=== PATIENT | female | born 1975 | race Hispanic/Latino ===

== ENCOUNTER 2020-11-09 10:39 | Inpatient (IN) | payer OTHER, SELFPAY ==
[~2020-11-09] VITALS: Ht 160 cm; Wt 97.5 kg
[2020-11-09] VITALS (7 sets, daily range): BP systolic 134–158; BP diastolic 84–105
[2020-11-09 11:27] LABS: BASOPHILS % (AUTO) 0.1 % (0.0-5.0); HEMATOCRIT 48.3 % (36-48); LYMPHOCYTES % (AUTO) 5.8 % (21.0-51.0); MEAN CORPUSCULAR HEMOGLOBIN 30.1 pg (27.0-33.0); MEAN CORPUSCULAR HGB CONC 33.5 g/dL (32.0-36.0); MEAN CORPUSCULAR VOLUME 89.6 fL (79-99); NEUTROPHILS % (AUTO) 89.9 % (40.0-77.0); PLATELET COUNT (AUTO) 202 K/uL (130-400); RED BLOOD CELL COUNT(AUTO) 5.39 MIL/uL (4.00-5.50); RED CELL DISTRIBUTION WIDTH 13.2 % (11.0-15.5); WHITE BLOOD COUNT (AUTO) 8.3 K/uL (4.8-10.8)
[2020-11-09] MEDS ORDERED: DEXAMETHASONE SOD PHOSPHATE 4 MG/ML 1ML VIAL IVP ONE (11:30)
[2020-11-09] MEDS ORDERED: CEFTRIAXONE 1G VIAL 1 GM in 0.9%NACL 100ML 100 ML IV ONE (11:30)
[2020-11-09] MEDS ORDERED: CEFTRIAXONE 1G VIAL IVP SCH (11:30)
[2020-11-09] MEDS ORDERED: LACTATED RINGERS 1000ML 1,000 ML IV ONE (11:30)
[2020-11-09] MEDS ORDERED: AZITHROMYCIN 250 MG TABLET PO ONE (11:30)
[2020-11-09 11:43] LABS: ALBUMIN 3.2 g/dL (3.5-5.0); BILIRUBIN,TOTAL 0.5 mg/dL (0.2-1.0); CREATININE 1.5 mg/dL (0.5-1.5); CRP QUANTITATIVE 147.4 mg/L (0.00-9.0); POTASSIUM 4.6 mmol/L (3.5-5.1); TOTAL PROTEIN, SERUM 8.4 g/dL (6.0-8.3)
[2020-11-09 11:46] LABS: ABG BASE EXCESS -3.5 mmol/L (-2.0-3.0); ABG HCO3 21.1 mmol/L (21.0-28.0); ABG OXYGEN SATURATION 89.2 % (95.0-99.0); ABG PCO2 37 mmHg (32-45)
[2020-11-09] MEDS ORDERED: OSELTAMIVIR PHOSPHATE 75 MG CAP PO SCH (12:00)
[2020-11-09] MEDS ORDERED: INSULIN HUMULIN R 100 UNIT/ML 3ML ONE (14:08)
[2020-11-09] MEDS ORDERED: PHARMACY COMMUNICATION MISC SCH (14:30)
[2020-11-09] MEDS ORDERED: INSULIN GLARGINE 100 UNITS/ML 10 ML VIAL SQ ONE (15:00)
[2020-11-09 15:20] LABS: HEMOGLOBIN A1C 12.1 % (4.0-6.0)
[2020-11-09] MEDS: OSELTAMIVIR PHOSPHATE 75 MG CAP PO SCH (15:46)
[2020-11-09] MEDS ORDERED: COMPOUND IV REFRIGERATED 1 EACH IVSOLN MISC PRN (16:00)
[2020-11-09] MEDS ORDERED: REMDESIVIR (EUA) 520 200 MG in 0.9% NACL 250ML 250 ML IV ONE (16:00)
[2020-11-09 16:23] LABS: APPEARANCE,URINE Clear (CLEAR); BILIRUBIN,URINE Negative (NEGATIVE); COLOR,URINE Yellow (YELLOW); GLUCOSE, URINE (UA) >=1000 mg/dL (NEGATIVE); KETONES,URINE 40 mg/dL (NEGATIVE); LEUKOCYTE ESTERASE ,URINE Negative (NEGATIVE); NITRATE,URINE Negative (NEGATIVE); OCCULT BLOOD,URINE Large (NEGATIVE); PH,URINE 5.5 (5.0-8.0); PROTEIN,URINE POS 2+ mg/dL (NEGATIVE); UROBILINOGEN,URINE 0.2 mg/dL (0.2-1.0)
[2020-11-09 16:25] LABS: HCG,QUAL RESULT NEGATIVE (NEGATIVE)
[2020-11-09 16:38] LABS: BACTERIA,URINE Few /HPF (None Seen); MUCUS,URINE Moderate LPF (None Seen); SQUAMOUS EPITHELIAL CELL,UR Moderate /HPF (0-2)
[2020-11-09] MEDS ORDERED: INSULIN HUMULIN R 100 UNIT/ML 3ML SQ SCH (18:00)
[2020-11-09] MEDS ORDERED: INSULIN HUMULIN R 100 UNIT/ML 3ML SQ ONE ×2 (18:30→21:30)
[2020-11-09 19:03] LABS: CREATININE 1.3 mg/dL (0.5-1.5); POTASSIUM 4.8 mmol/L (3.5-5.1)
[2020-11-09] MEDS: AZITHROMYCIN 250 MG TABLET PO SCH (21:24)
[2020-11-09] MEDS: ENOXAPARIN SODIUM 60 MG/0.6 ML SQ SCH (21:25)
[2020-11-09] MEDS: INSULIN HUMULIN R 100 UNIT/ML 3ML SQ SCH (21:25)
[2020-11-10] VITALS (28 sets, daily range): BP systolic 128–172; BP diastolic 76–99
[2020-11-10 06:04] LABS: BASOPHILS % (AUTO) 0.1 % (0.0-5.0); EOSINOPHILS % (AUTO) 1.5 % (0.0-8.0); HEMATOCRIT 44.2 % (36-48); LYMPHOCYTES % (AUTO) 9.1 % (21.0-51.0); MEAN CORPUSCULAR HEMOGLOBIN 30.1 pg (27.0-33.0); MEAN CORPUSCULAR HGB CONC 33.7 g/dL (32.0-36.0); MEAN CORPUSCULAR VOLUME 89.3 fL (79-99); MONOCYTES % (AUTO) 4.9 % (3.0-13.0); PLATELET COUNT (AUTO) 194 K/uL (130-400); RED BLOOD CELL COUNT(AUTO) 4.95 MIL/uL (4.00-5.50); RED CELL DISTRIBUTION WIDTH 13.6 % (11.0-15.5); WHITE BLOOD COUNT (AUTO) 7.3 K/uL (4.8-10.8)
[2020-11-10 06:26] LABS: ALBUMIN 2.8 g/dL (3.5-5.0); BILIRUBIN,TOTAL 0.5 mg/dL (0.2-1.0); CREATININE 1.2 mg/dL (0.5-1.5); POTASSIUM 4.6 mmol/L (3.5-5.1); TOTAL PROTEIN, SERUM 7.6 g/dL (6.0-8.3)
[2020-11-10] MEDS: INSULIN HUMULIN R 100 UNIT/ML 3ML SQ SCH ×7 (06:30→20:32)
[2020-11-10] MEDS ORDERED: INSULIN HUMULIN R 100 UNIT/ML 3ML SQ SCH (07:30)
[2020-11-10] MEDS ORDERED: GUAIFENESIN SUGAR-FREE 100 MG/5 ML UDCUP ONE (07:56)
[2020-11-10] MEDS ORDERED: BENZONATATE 100 MG CAPSULE PO ONE (07:57)
[2020-11-10] MEDS: CEFTRIAXONE 1G VIAL IVP SCH (08:01)
[2020-11-10] MEDS: ENOXAPARIN SODIUM 60 MG/0.6 ML SQ SCH ×2 (08:02→20:33)
[2020-11-10] MEDS ORDERED: INSULIN GLARGINE 100 UNITS/ML 10 ML VIAL SQ SCH (09:00)
[2020-11-10] MEDS ORDERED: DEXAMETHASONE SOD PHOSPHATE 4 MG/ML 1ML VIAL IVP SCH (10:30)
[2020-11-10] MEDS ORDERED: PHARMACY COMMUNICATION MISC SCH (10:30)
[2020-11-10] MEDS: REMDESIVIR LABS MISC SCH (14:00)
[2020-11-10] MEDS: GUAIFENESIN SUGAR-FREE 100 MG/5 ML UDCUP PO PRN ×2 (14:11→20:33)
[2020-11-10] MEDS ORDERED: ACETAMINOPHEN 325 MG TAB ONE (16:34)
[2020-11-10] MEDS: OSELTAMIVIR PHOSPHATE 75 MG CAP PO SCH (16:46)
[2020-11-10] MEDS: REMDESIVIR (EUA) 520 100 MG in 0.9% NACL 250ML 250 ML IV SCH (16:47)
[2020-11-10] MEDS ORDERED: ACETAMINOPHEN 325 MG TAB PO PRN ×2 (17:00)
[2020-11-10] MEDS: AZITHROMYCIN 250 MG TABLET PO SCH (20:30)
[2020-11-10] MEDS ORDERED: GLIM2TAB30 PO (23:26)
[2020-11-10] MEDS ORDERED: AMLO-257 PO (23:26)
[2020-11-10] MEDS ORDERED: METF-445 PO (23:26)
[2020-11-10] MEDS ORDERED: BISO1TAB99 PO (23:26)
[2020-11-10] MEDS ORDERED: LISI10TA24 PO (23:26)
[2020-11-10] MEDS ORDERED: ALPR-409 PO (23:26)
[2020-11-10] MEDS ORDERED: FLUO20CA30 PO (23:26)
[2020-11-11] VITALS (33 sets, daily range): BP systolic 111–156; BP diastolic 56–93
[2020-11-11 04:56] LABS: LYMPHOCYTES % (AUTO) 9.3 % (21.0-51.0); MEAN CORPUSCULAR HEMOGLOBIN 30.1 pg (27.0-33.0); MEAN CORPUSCULAR HGB CONC 32.9 g/dL (32.0-36.0); MEAN CORPUSCULAR VOLUME 91.6 fL (79-99); MONOCYTES % (AUTO) 7.3 % (3.0-13.0); NEUTROPHILS % (AUTO) 82.9 % (40.0-77.0); PLATELET COUNT (AUTO) 198 K/uL (130-400); RED BLOOD CELL COUNT(AUTO) 4.91 MIL/uL (4.00-5.50); RED CELL DISTRIBUTION WIDTH 13.5 % (11.0-15.5); WHITE BLOOD COUNT (AUTO) 6.6 K/uL (4.8-10.8)
[2020-11-11 05:19] LABS: ALBUMIN 2.6 g/dL (3.5-5.0); BILIRUBIN,TOTAL 0.4 mg/dL (0.2-1.0); POTASSIUM 4.4 mmol/L (3.5-5.1); TOTAL PROTEIN, SERUM 7.3 g/dL (6.0-8.3)
[2020-11-11] MEDS: INSULIN HUMULIN R 100 UNIT/ML 3ML SQ SCH ×7 (06:24→20:25)
[2020-11-11] MEDS: REMDESIVIR LABS MISC SCH (06:25)
[2020-11-11] MEDS: BARICITINIB (EUA) 2 MG TABLET PO SCH (08:36)
[2020-11-11] MEDS: ENOXAPARIN SODIUM 60 MG/0.6 ML SQ SCH ×2 (08:36→19:48)
[2020-11-11] MEDS: CEFTRIAXONE 1G VIAL IVP SCH (08:36)
[2020-11-11] MEDS: DEXAMETHASONE SOD PHOSPHATE 4 MG/ML 1ML VIAL IVP SCH (08:36)
[2020-11-11] MEDS: INSULIN GLARGINE 100 UNITS/ML 10 ML VIAL SQ SCH ×2 (08:37→20:24)
[2020-11-11] MEDS: LABETALOL HCL 200 MG TABLET PO SCH ×2 (11:23→21:00)
[2020-11-11] MEDS: BUSPIRONE HCL 5 MG TABLET PO SCH ×2 (15:58→20:14)
[2020-11-11] MEDS: OSELTAMIVIR PHOSPHATE 75 MG CAP PO SCH (15:58)
[2020-11-11] MEDS: REMDESIVIR (EUA) 520 100 MG in 0.9% NACL 250ML 250 ML IV SCH (16:10)
[2020-11-11] MEDS: GUAIFENESIN SUGAR-FREE 100 MG/5 ML UDCUP PO PRN (18:57)
[2020-11-11] MEDS: AZITHROMYCIN 250 MG TABLET PO SCH (19:48)
[2020-11-11] MEDS: ALPRAZOLAM 0.25 MG TABLET PO PRN (19:48)
[2020-11-11] MEDS: AMLODIPINE 5 MG TAB PO SCH (19:51)
[2020-11-11] MEDS: LISINOPRIL 10 MG TABLET PO SCH (19:51)
[2020-11-11] MEDS: GLIMEPIRIDE 2 MG TABLET PO SCH (20:44)
[2020-11-11] MEDS: BISOPROLOL HCTZ PO SCH (21:00)
[2020-11-12] VITALS (24 sets, daily range): BP systolic 100–159; BP diastolic 59–94
[2020-11-12 05:00] LABS: BASOPHILS % (AUTO) 0.2 % (0.0-5.0); HEMATOCRIT 41.1 % (36-48); LYMPHOCYTES % (AUTO) 18.1 % (21.0-51.0); MEAN CORPUSCULAR HEMOGLOBIN 30.2 pg (27.0-33.0); MEAN CORPUSCULAR HGB CONC 33.1 g/dL (32.0-36.0); MEAN CORPUSCULAR VOLUME 91.3 fL (79-99); MONOCYTES % (AUTO) 8.3 % (3.0-13.0); NEUTROPHILS % (AUTO) 72.6 % (40.0-77.0); PLATELET COUNT (AUTO) 229 K/uL (130-400); RED CELL DISTRIBUTION WIDTH 13.4 % (11.0-15.5); WHITE BLOOD COUNT (AUTO) 5.2 K/uL (4.8-10.8)
[2020-11-12 05:30] LABS: ALBUMIN 2.4 g/dL (3.5-5.0); BILIRUBIN,TOTAL 0.3 mg/dL (0.2-1.0); CREATININE 1.1 mg/dL (0.5-1.5); CRP QUANTITATIVE 58.2 mg/L (0.00-9.0); POTASSIUM 3.8 mmol/L (3.5-5.1); TOTAL PROTEIN, SERUM 6.8 g/dL (6.0-8.3)
[2020-11-12] MEDS: INSULIN HUMULIN R 100 UNIT/ML 3ML SQ SCH ×7 (05:50→20:45)
[2020-11-12] MEDS: REMDESIVIR LABS MISC SCH (06:15)
[2020-11-12] MEDS: BISOPROLOL HCTZ PO SCH ×2 (09:00→20:38)
[2020-11-12] MEDS: DEXAMETHASONE SOD PHOSPHATE 4 MG/ML 1ML VIAL IVP SCH (10:10)
[2020-11-12] MEDS: CEFTRIAXONE 1G VIAL IVP SCH (10:11)
[2020-11-12] MEDS: FLUOXETINE HCL 20 MG CAPSULE PO SCH (10:11)
[2020-11-12] MEDS: BUSPIRONE HCL 5 MG TABLET PO SCH ×3 (10:11→20:39)
[2020-11-12] MEDS: BARICITINIB (EUA) 2 MG TABLET PO SCH (10:12)
[2020-11-12] MEDS: GLIMEPIRIDE 2 MG TABLET PO SCH ×2 (10:12→20:40)
[2020-11-12] MEDS: AMLODIPINE 5 MG TAB PO SCH ×2 (10:12→20:39)
[2020-11-12] MEDS: LISINOPRIL 10 MG TABLET PO SCH ×2 (10:13→20:40)
[2020-11-12] MEDS: ENOXAPARIN SODIUM 60 MG/0.6 ML SQ SCH ×2 (10:15→20:42)
[2020-11-12] MEDS: INSULIN GLARGINE 100 UNITS/ML 10 ML VIAL SQ SCH ×2 (10:19→20:43)
[2020-11-12] MEDS: LABETALOL HCL 200 MG TABLET PO SCH ×2 (11:40→21:00)
[2020-11-12] MEDS: GUAIFENESIN SUGAR-FREE 100 MG/5 ML UDCUP PO PRN (12:04)
[2020-11-12] MEDS: REMDESIVIR (EUA) 520 100 MG in 0.9% NACL 250ML 250 ML IV SCH (15:18)
[2020-11-12] MEDS: OSELTAMIVIR PHOSPHATE 75 MG CAP PO SCH (15:21)
[2020-11-12] MEDS: AZITHROMYCIN 250 MG TABLET PO SCH (20:39)
[2020-11-12] MEDS: ALPRAZOLAM 0.25 MG TABLET PO PRN (22:47)
[2020-11-13] VITALS (31 sets, daily range): BP systolic 104–169; BP diastolic 65–113
[2020-11-13 05:05] LABS: BASOPHILS % (AUTO) 0.1 % (0.0-5.0); EOSINOPHILS % (AUTO) 0.3 % (0.0-8.0); MEAN CORPUSCULAR HEMOGLOBIN 29.6 pg (27.0-33.0); MEAN CORPUSCULAR HGB CONC 32.7 g/dL (32.0-36.0); MEAN CORPUSCULAR VOLUME 90.7 fL (79-99); NEUTROPHILS % (AUTO) 77.9 % (40.0-77.0); PLATELET COUNT (AUTO) 270 K/uL (130-400); RED BLOOD CELL COUNT(AUTO) 4.52 MIL/uL (4.00-5.50); RED CELL DISTRIBUTION WIDTH 13.2 % (11.0-15.5); WHITE BLOOD COUNT (AUTO) 7.2 K/uL (4.8-10.8)
[2020-11-13 05:22] LABS: ALBUMIN 2.4 g/dL (3.5-5.0); BILIRUBIN,TOTAL 0.3 mg/dL (0.2-1.0); CREATININE 1.1 mg/dL (0.5-1.5); CRP QUANTITATIVE 38.3 mg/L (0.00-9.0); POTASSIUM 3.3 mmol/L (3.5-5.1); TOTAL PROTEIN, SERUM 6.5 g/dL (6.0-8.3)
[2020-11-13] MEDS: INSULIN HUMULIN R 100 UNIT/ML 3ML SQ SCH ×7 (05:59→20:39)
[2020-11-13] MEDS: REMDESIVIR LABS MISC SCH (06:29)
[2020-11-13] MEDS: GUAIFENESIN SUGAR-FREE 100 MG/5 ML UDCUP PO PRN (08:18)
[2020-11-13] MEDS: DEXAMETHASONE SOD PHOSPHATE 4 MG/ML 1ML VIAL IVP SCH (08:48)
[2020-11-13] MEDS: CEFTRIAXONE 1G VIAL IVP SCH (08:48)
[2020-11-13] MEDS: GLIMEPIRIDE 2 MG TABLET PO SCH ×2 (08:49→20:35)
[2020-11-13] MEDS: BUSPIRONE HCL 5 MG TABLET PO SCH ×3 (08:49→20:36)
[2020-11-13] MEDS: FLUOXETINE HCL 20 MG CAPSULE PO SCH (08:49)
[2020-11-13] MEDS: BARICITINIB (EUA) 2 MG TABLET PO SCH (08:49)
[2020-11-13] MEDS: INSULIN GLARGINE 100 UNITS/ML 10 ML VIAL SQ SCH ×2 (08:51→20:40)
[2020-11-13] MEDS: ENOXAPARIN SODIUM 60 MG/0.6 ML SQ SCH ×2 (08:52→20:34)
[2020-11-13] MEDS: BISOPROLOL HCTZ PO SCH (08:56)
[2020-11-13] MEDS: LABETALOL HCL 200 MG TABLET PO SCH ×3 (09:00→20:35)
[2020-11-13] MEDS: AMLODIPINE 5 MG TAB PO SCH ×3 (09:00→20:35)
[2020-11-13] MEDS: LISINOPRIL 10 MG TABLET PO SCH ×2 (09:02→20:36)
[2020-11-13] MEDS ORDERED: POTASSIUM CHLORIDE 10% ELIXIR 20 MEQ/15 ML UDCUP PO PRN (14:00)
[2020-11-13] MEDS ORDERED: LIDOCAINE HCL-MPF 1% 2ML VIAL IV PRN (14:00)
[2020-11-13] MEDS ORDERED: POTASSIUM CHLORIDE 20MEQ/100ML 100 ML IV PRN (14:00)
[2020-11-13] MEDS: KCL 20 MEQ ERTAB PO PRN ×2 (14:46→18:49)
[2020-11-13] MEDS: REMDESIVIR (EUA) 520 100 MG in 0.9% NACL 250ML 250 ML IV SCH (15:05)
[2020-11-13] MEDS: OSELTAMIVIR PHOSPHATE 75 MG CAP PO SCH (15:05)
[2020-11-13] MEDS: ALPRAZOLAM 0.25 MG TABLET PO PRN (20:35)
[2020-11-13] MEDS: BENZONATATE 100 MG CAPSULE PO PRN (20:36)
[2020-11-13] MEDS: ZOLPIDEM TARTRATE 5 MG TAB PO PRN (21:32)
[2020-11-14] VITALS (23 sets, daily range): BP systolic 98–140; BP diastolic 63–90
[2020-11-14] MEDS: INSULIN HUMULIN R 100 UNIT/ML 3ML SQ SCH ×7 (06:23→20:30)
[2020-11-14 06:32] LABS: BASOPHILS % (AUTO) 0.2 % (0.0-5.0); EOSINOPHILS % (AUTO) 0.9 % (0.0-8.0); HEMATOCRIT 40.8 % (36-48); MEAN CORPUSCULAR HEMOGLOBIN 30.5 pg (27.0-33.0); MEAN CORPUSCULAR HGB CONC 33.3 g/dL (32.0-36.0); MEAN CORPUSCULAR VOLUME 91.5 fL (79-99); MONOCYTES % (AUTO) 2.7 % (3.0-13.0); NEUTROPHILS % (AUTO) 85.4 % (40.0-77.0); PLATELET COUNT (AUTO) 257 K/uL (130-400); RED BLOOD CELL COUNT(AUTO) 4.46 MIL/uL (4.00-5.50); RED CELL DISTRIBUTION WIDTH 13.2 % (11.0-15.5); WHITE BLOOD COUNT (AUTO) 8.6 K/uL (4.8-10.8)
[2020-11-14 06:45] LABS: ALBUMIN 2.4 g/dL (3.5-5.0); BILIRUBIN,TOTAL 0.3 mg/dL (0.2-1.0); CREATININE 0.9 mg/dL (0.5-1.5); POTASSIUM 3.8 mmol/L (3.5-5.1); TOTAL PROTEIN, SERUM 6.4 g/dL (6.0-8.3)
[2020-11-14] MEDS: INSULIN GLARGINE 100 UNITS/ML 10 ML VIAL SQ SCH ×2 (09:00→20:31)
[2020-11-14] MEDS: AMLODIPINE 5 MG TAB PO SCH ×2 (09:01→21:00)
[2020-11-14] MEDS: HYDROCHLOROTHIAZIDE 25 MG TABLET PO SCH (09:01)
[2020-11-14] MEDS: LISINOPRIL 10 MG TABLET PO SCH ×2 (09:01→21:00)
[2020-11-14] MEDS: GLIMEPIRIDE 2 MG TABLET PO SCH ×2 (09:02→20:29)
[2020-11-14] MEDS: FLUOXETINE HCL 20 MG CAPSULE PO SCH (09:02)
[2020-11-14] MEDS: BUSPIRONE HCL 5 MG TABLET PO SCH ×3 (09:04→20:29)
[2020-11-14] MEDS: BARICITINIB (EUA) 2 MG TABLET PO SCH (09:06)
[2020-11-14] MEDS: DEXAMETHASONE SOD PHOSPHATE 4 MG/ML 1ML VIAL IVP SCH (09:06)
[2020-11-14] MEDS: ENOXAPARIN SODIUM 60 MG/0.6 ML SQ SCH ×2 (09:07→20:28)
[2020-11-14] MEDS: CEFTRIAXONE 1G VIAL IVP SCH (09:07)
[2020-11-14] MEDS: LABETALOL HCL 200 MG TABLET PO SCH ×2 (09:38→20:28)
[2020-11-14] MEDS: ALPRAZOLAM 0.25 MG TABLET PO PRN (20:28)
[2020-11-15] VITALS (20 sets, daily range): BP systolic 97–173; BP diastolic 56–105
[2020-11-15] MEDS: INSULIN HUMULIN R 100 UNIT/ML 3ML SQ SCH ×7 (07:04→20:40)
[2020-11-15 07:25] LABS: ALBUMIN 2.4 g/dL (3.5-5.0); BILIRUBIN,TOTAL 0.4 mg/dL (0.2-1.0); CREATININE 1.1 mg/dL (0.5-1.5); POTASSIUM 3.8 mmol/L (3.5-5.1); TOTAL PROTEIN, SERUM 5.8 g/dL (6.0-8.3)
[2020-11-15] MEDS: DEXAMETHASONE SOD PHOSPHATE 4 MG/ML 1ML VIAL IVP SCH ×2 (08:19→20:36)
[2020-11-15] MEDS: ENOXAPARIN SODIUM 60 MG/0.6 ML SQ SCH ×2 (08:19→20:36)
[2020-11-15] MEDS: BUSPIRONE HCL 5 MG TABLET PO SCH ×3 (08:20→20:36)
[2020-11-15] MEDS: AMLODIPINE 5 MG TAB PO SCH ×2 (08:20→20:37)
[2020-11-15] MEDS: LABETALOL HCL 200 MG TABLET PO SCH ×2 (08:20→20:36)
[2020-11-15] MEDS: FLUOXETINE HCL 20 MG CAPSULE PO SCH (08:20)
[2020-11-15] MEDS: FAMOTIDINE 20MG TAB PO SCH ×2 (08:20→20:36)
[2020-11-15] MEDS: LISINOPRIL 10 MG TABLET PO SCH ×2 (08:20→20:37)
[2020-11-15] MEDS: HYDROCHLOROTHIAZIDE 25 MG TABLET PO SCH (08:20)
[2020-11-15] MEDS: BARICITINIB (EUA) 2 MG TABLET PO SCH (08:20)
[2020-11-15] MEDS: GLIMEPIRIDE 2 MG TABLET PO SCH ×2 (09:08→20:37)
[2020-11-15] MEDS: GUAIFENESIN SUGAR-FREE 100 MG/5 ML UDCUP PO PRN (09:24)
[2020-11-15] MEDS: ALPRAZOLAM 0.25 MG TABLET PO PRN (20:37)
[2020-11-15] MEDS: INSULIN GLARGINE 100 UNITS/ML 10 ML VIAL SQ SCH (20:41)
[2020-11-16] VITALS (18 sets, daily range): BP systolic 111–141; BP diastolic 61–103
[2020-11-16 05:40] LABS: BASOPHILS % (AUTO) 0.2 % (0.0-5.0); EOSINOPHILS % (AUTO) 0.5 % (0.0-8.0); HEMATOCRIT 40.7 % (36-48); MEAN CORPUSCULAR HEMOGLOBIN 30.2 pg (27.0-33.0); MEAN CORPUSCULAR HGB CONC 32.9 g/dL (32.0-36.0); MEAN CORPUSCULAR VOLUME 91.7 fL (79-99); MONOCYTES % (AUTO) 3.5 % (3.0-13.0); PLATELET COUNT (AUTO) 322 K/uL (130-400); RED BLOOD CELL COUNT(AUTO) 4.44 MIL/uL (4.00-5.50); RED CELL DISTRIBUTION WIDTH 12.9 % (11.0-15.5); WHITE BLOOD COUNT (AUTO) 12.2 K/uL (4.8-10.8)
[2020-11-16 05:59] LABS: ALBUMIN 2.4 g/dL (3.5-5.0); BILIRUBIN,TOTAL 0.3 mg/dL (0.2-1.0); POTASSIUM 4.6 mmol/L (3.5-5.1); TOTAL PROTEIN, SERUM 6.9 g/dL (6.0-8.3)
[2020-11-16] MEDS: INSULIN HUMULIN R 100 UNIT/ML 3ML SQ SCH ×7 (06:34→21:07)
[2020-11-16] MEDS: AMLODIPINE 5 MG TAB PO SCH ×2 (08:24→21:05)
[2020-11-16] MEDS: FAMOTIDINE 20MG TAB PO SCH ×2 (08:24→21:04)
[2020-11-16] MEDS: DEXAMETHASONE SOD PHOSPHATE 4 MG/ML 1ML VIAL IVP SCH ×2 (08:24→21:04)
[2020-11-16] MEDS: BARICITINIB (EUA) 2 MG TABLET PO SCH (08:24)
[2020-11-16] MEDS: HYDROCHLOROTHIAZIDE 25 MG TABLET PO SCH (08:24)
[2020-11-16] MEDS: FLUOXETINE HCL 20 MG CAPSULE PO SCH (08:24)
[2020-11-16] MEDS: GLIMEPIRIDE 2 MG TABLET PO SCH ×2 (08:25→21:20)
[2020-11-16] MEDS: ENOXAPARIN SODIUM 60 MG/0.6 ML SQ SCH ×2 (08:27→21:05)
[2020-11-16] MEDS: LABETALOL HCL 200 MG TABLET PO SCH ×2 (08:31→21:04)
[2020-11-16] MEDS: LISINOPRIL 10 MG TABLET PO SCH ×2 (08:32→21:05)
[2020-11-16] MEDS: BUSPIRONE HCL 5 MG TABLET PO SCH ×3 (08:32→21:04)
[2020-11-16] MEDS: GUAIFENESIN SUGAR-FREE 100 MG/5 ML UDCUP PO PRN (08:36)
[2020-11-16] MEDS: INSULIN GLARGINE 100 UNITS/ML 10 ML VIAL SQ SCH (21:07)
[2020-11-17 04:03] VITALS: BP 130/70
[2020-11-17] MEDS: INSULIN HUMULIN R 100 UNIT/ML 3ML SQ SCH ×8 (06:05→21:14)
[2020-11-17 07:39] VITALS: BP 115/80
[2020-11-17] MEDS: INSULIN GLARGINE 100 UNITS/ML 10 ML VIAL SQ SCH ×2 (09:17→21:15)
[2020-11-17] MEDS: DEXAMETHASONE SOD PHOSPHATE 4 MG/ML 1ML VIAL IVP SCH ×2 (09:21→21:09)
[2020-11-17] MEDS: LABETALOL HCL 200 MG TABLET PO SCH ×2 (09:22→21:08)
[2020-11-17] MEDS: LISINOPRIL 10 MG TABLET PO SCH ×2 (09:22→21:08)
[2020-11-17] MEDS: BUSPIRONE HCL 5 MG TABLET PO SCH ×3 (09:23→21:09)
[2020-11-17] MEDS: ENOXAPARIN SODIUM 60 MG/0.6 ML SQ SCH ×2 (09:23→21:09)
[2020-11-17] MEDS: BARICITINIB (EUA) 2 MG TABLET PO SCH (09:23)
[2020-11-17] MEDS: HYDROCHLOROTHIAZIDE 25 MG TABLET PO SCH (09:23)
[2020-11-17] MEDS: FAMOTIDINE 20MG TAB PO SCH ×2 (09:23→21:08)
[2020-11-17] MEDS: FLUOXETINE HCL 20 MG CAPSULE PO SCH (09:23)
[2020-11-17] MEDS: GLIMEPIRIDE 2 MG TABLET PO SCH ×2 (09:23→21:09)
[2020-11-17 11:57] VITALS: BP 126/73
[2020-11-17] MEDS: AMLODIPINE 5 MG TAB PO SCH ×2 (12:01→21:09)
[2020-11-17 15:47] VITALS: BP 110/64
[2020-11-17 20:09] VITALS: BP 111/66
[2020-11-17] MEDS: ALPRAZOLAM 0.25 MG TABLET PO PRN (21:20)
[2020-11-17] MEDS: ZOLPIDEM TARTRATE 5 MG TAB PO PRN (21:20)
[2020-11-17 23:44] VITALS: BP 126/66
[2020-11-18 03:47] VITALS: BP 146/72
[2020-11-18] MEDS: INSULIN HUMULIN R 100 UNIT/ML 3ML SQ SCH ×7 (06:11→20:29)
[2020-11-18 08:17] VITALS: BP 120/62
[2020-11-18] MEDS: FAMOTIDINE 20MG TAB PO SCH ×2 (09:52→20:25)
[2020-11-18] MEDS: LISINOPRIL 10 MG TABLET PO SCH ×2 (09:52→20:26)
[2020-11-18] MEDS: HYDROCHLOROTHIAZIDE 25 MG TABLET PO SCH (09:53)
[2020-11-18] MEDS: BARICITINIB (EUA) 2 MG TABLET PO SCH (09:53)
[2020-11-18] MEDS: FLUOXETINE HCL 20 MG CAPSULE PO SCH (09:53)
[2020-11-18] MEDS: BUSPIRONE HCL 5 MG TABLET PO SCH ×3 (09:53→20:24)
[2020-11-18] MEDS: AMLODIPINE 5 MG TAB PO SCH ×2 (09:53→20:24)
[2020-11-18] MEDS: ENOXAPARIN SODIUM 60 MG/0.6 ML SQ SCH ×2 (09:53→20:23)
[2020-11-18] MEDS: GLIMEPIRIDE 2 MG TABLET PO SCH ×2 (09:53→20:23)
[2020-11-18] MEDS: DEXAMETHASONE SOD PHOSPHATE 4 MG/ML 1ML VIAL IVP SCH ×2 (09:56→20:25)
[2020-11-18] MEDS: INSULIN GLARGINE 100 UNITS/ML 10 ML VIAL SQ SCH ×2 (10:12→20:28)
[2020-11-18 11:47] VITALS: BP 137/75
[2020-11-18] MEDS: LABETALOL HCL 200 MG TABLET PO SCH ×2 (12:55→20:24)
[2020-11-18 16:14] VITALS: BP 102/65
[2020-11-18] MEDS: ZOLPIDEM TARTRATE 5 MG TAB PO PRN (20:24)
[2020-11-18 20:42] VITALS: BP 108/71
[2020-11-18 23:55] VITALS: BP 120/77
[2020-11-19 03:57] VITALS: BP 137/75
[2020-11-19 04:34] LABS: BASOPHILS % (AUTO) 0.2 % (0.0-5.0); EOSINOPHILS % (AUTO) 0.2 % (0.0-8.0); HEMATOCRIT 40.5 % (36-48); LYMPHOCYTES % (AUTO) 3.2 % (21.0-51.0); MEAN CORPUSCULAR HEMOGLOBIN 30.2 pg (27.0-33.0); MEAN CORPUSCULAR HGB CONC 33.1 g/dL (32.0-36.0); MEAN CORPUSCULAR VOLUME 91.4 fL (79-99); MONOCYTES % (AUTO) 7.4 % (3.0-13.0); NEUTROPHILS % (AUTO) 85.8 % (40.0-77.0); PLATELET COUNT (AUTO) 345 K/uL (130-400); RED BLOOD CELL COUNT(AUTO) 4.43 MIL/uL (4.00-5.50); RED CELL DISTRIBUTION WIDTH 12.8 % (11.0-15.5)
[2020-11-19 04:50] LABS: ALBUMIN 2.5 g/dL (3.5-5.0); BILIRUBIN,TOTAL 0.3 mg/dL (0.2-1.0); CRP QUANTITATIVE 9.9 mg/L (0.00-9.0); MAGNESIUM 2.1 mg/dL (1.80-2.40); PHOSPHORUS 4.4 mg/dL (2.5-4.9); POTASSIUM 4.3 mmol/L (3.5-5.1); TOTAL PROTEIN, SERUM 6.7 g/dL (6.0-8.3)
[2020-11-19 05:44] LABS: B-TYPE NATRIURETIC PEPTIDE < 5 pg/mL (0-100)
[2020-11-19] MEDS: INSULIN HUMULIN R 100 UNIT/ML 3ML SQ SCH ×7 (07:30→20:37)
[2020-11-19 08:32] VITALS: BP 118/75
[2020-11-19] MEDS: FAMOTIDINE 20MG TAB PO SCH ×2 (09:22→20:34)
[2020-11-19] MEDS: FLUOXETINE HCL 20 MG CAPSULE PO SCH (09:22)
[2020-11-19] MEDS: ENOXAPARIN SODIUM 60 MG/0.6 ML SQ SCH ×2 (09:23→20:35)
[2020-11-19] MEDS: HYDROCHLOROTHIAZIDE 25 MG TABLET PO SCH (09:24)
[2020-11-19] MEDS: LISINOPRIL 10 MG TABLET PO SCH ×2 (09:24→20:34)
[2020-11-19] MEDS: LABETALOL HCL 200 MG TABLET PO SCH ×2 (09:25→20:34)
[2020-11-19] MEDS: GLIMEPIRIDE 2 MG TABLET PO SCH ×2 (09:28→20:38)
[2020-11-19] MEDS: BARICITINIB (EUA) 2 MG TABLET PO SCH (09:29)
[2020-11-19] MEDS: DEXAMETHASONE SOD PHOSPHATE 4 MG/ML 1ML VIAL IVP SCH ×2 (09:34→20:33)
[2020-11-19] MEDS: INSULIN GLARGINE 100 UNITS/ML 10 ML VIAL SQ SCH ×2 (09:34→20:36)
[2020-11-19] MEDS: BUSPIRONE HCL 5 MG TABLET PO SCH ×3 (09:46→20:34)
[2020-11-19] MEDS: AMLODIPINE 5 MG TAB PO SCH ×2 (12:45→20:34)
[2020-11-19 13:00] VITALS: BP 113/64
[2020-11-19 16:00] VITALS: BP 122/81
[2020-11-19 19:39] VITALS: BP 113/71
[2020-11-20] VITALS (7 sets, daily range): BP systolic 108–135; BP diastolic 62–74
[2020-11-20 04:26] LABS: BASOPHILS % (AUTO) 0.1 % (0.0-5.0); EOSINOPHILS % (AUTO) 0.1 % (0.0-8.0); HEMATOCRIT 39.8 % (36-48); LYMPHOCYTES % (AUTO) 3.1 % (21.0-51.0); MEAN CORPUSCULAR HGB CONC 33.4 g/dL (32.0-36.0); MEAN CORPUSCULAR VOLUME 89.8 fL (79-99); MONOCYTES % (AUTO) 4.3 % (3.0-13.0); NEUTROPHILS % (AUTO) 89.8 % (40.0-77.0); PLATELET COUNT (AUTO) 325 K/uL (130-400); RED BLOOD CELL COUNT(AUTO) 4.43 MIL/uL (4.00-5.50); RED CELL DISTRIBUTION WIDTH 12.7 % (11.0-15.5); WHITE BLOOD COUNT (AUTO) 16.4 K/uL (4.8-10.8)
[2020-11-20 04:42] LABS: ALBUMIN 2.4 g/dL (3.5-5.0); BILIRUBIN,TOTAL 0.3 mg/dL (0.2-1.0); CREATININE 1.1 mg/dL (0.5-1.5); POTASSIUM 4.8 mmol/L (3.5-5.1); TOTAL PROTEIN, SERUM 6.6 g/dL (6.0-8.3)
[2020-11-20] MEDS: BENZONATATE 100 MG CAPSULE PO PRN (04:55)
[2020-11-20] MEDS: INSULIN HUMULIN R 100 UNIT/ML 3ML SQ SCH ×7 (06:05→21:46)
[2020-11-20] MEDS: BUSPIRONE HCL 5 MG TABLET PO SCH ×3 (09:17→21:23)
[2020-11-20] MEDS: FAMOTIDINE 20MG TAB PO SCH ×2 (09:17→21:23)
[2020-11-20] MEDS: LABETALOL HCL 200 MG TABLET PO SCH ×2 (09:17→21:23)
[2020-11-20] MEDS: DEXAMETHASONE SOD PHOSPHATE 4 MG/ML 1ML VIAL IVP SCH ×2 (09:17→21:23)
[2020-11-20] MEDS: FLUOXETINE HCL 20 MG CAPSULE PO SCH (09:17)
[2020-11-20] MEDS: HYDROCHLOROTHIAZIDE 25 MG TABLET PO SCH (09:18)
[2020-11-20] MEDS: AMLODIPINE 5 MG TAB PO SCH ×2 (09:18→21:23)
[2020-11-20] MEDS: LISINOPRIL 10 MG TABLET PO SCH ×2 (09:18→21:23)
[2020-11-20] MEDS: GLIMEPIRIDE 2 MG TABLET PO SCH ×2 (09:18→21:23)
[2020-11-20] MEDS: BARICITINIB (EUA) 2 MG TABLET PO SCH (09:18)
[2020-11-20] MEDS: ENOXAPARIN SODIUM 60 MG/0.6 ML SQ SCH ×2 (09:37→21:29)
[2020-11-20] MEDS: INSULIN GLARGINE 100 UNITS/ML 10 ML VIAL SQ SCH ×2 (09:38→21:47)
[2020-11-21 04:18] LABS: BASOPHILS % (AUTO) 0.2 % (0.0-5.0); EOSINOPHILS % (AUTO) 0.1 % (0.0-8.0); HEMATOCRIT 41.2 % (36-48); LYMPHOCYTES % (AUTO) 2.4 % (21.0-51.0); MEAN CORPUSCULAR VOLUME 90.7 fL (79-99); MONOCYTES % (AUTO) 4.2 % (3.0-13.0); NEUTROPHILS % (AUTO) 91.1 % (40.0-77.0); PLATELET COUNT (AUTO) 335 K/uL (130-400); RED BLOOD CELL COUNT(AUTO) 4.54 MIL/uL (4.00-5.50); RED CELL DISTRIBUTION WIDTH 12.9 % (11.0-15.5); WHITE BLOOD COUNT (AUTO) 18.4 K/uL (4.8-10.8)
[2020-11-21 04:37] LABS: ALBUMIN 2.6 g/dL (3.5-5.0); BILIRUBIN,TOTAL 0.3 mg/dL (0.2-1.0); CREATININE 1.1 mg/dL (0.5-1.5); POTASSIUM 4.7 mmol/L (3.5-5.1); TOTAL PROTEIN, SERUM 6.8 g/dL (6.0-8.3)
[2020-11-21 04:50] VITALS: BP 115/66
[2020-11-21] MEDS: FLUOXETINE HCL 20 MG CAPSULE PO SCH (08:42)
[2020-11-21] MEDS: GLIMEPIRIDE 2 MG TABLET PO SCH ×2 (08:42→20:39)
[2020-11-21] MEDS: AMLODIPINE 5 MG TAB PO SCH ×2 (08:42→20:39)
[2020-11-21] MEDS: BARICITINIB (EUA) 2 MG TABLET PO SCH (08:42)
[2020-11-21] MEDS: FAMOTIDINE 20MG TAB PO SCH ×2 (08:42→20:39)
[2020-11-21] MEDS: LISINOPRIL 10 MG TABLET PO SCH ×2 (08:43→20:39)
[2020-11-21] MEDS: DEXAMETHASONE SOD PHOSPHATE 4 MG/ML 1ML VIAL IVP SCH ×2 (08:43→20:38)
[2020-11-21] MEDS: BUSPIRONE HCL 5 MG TABLET PO SCH ×3 (08:43→20:39)
[2020-11-21] MEDS: HYDROCHLOROTHIAZIDE 25 MG TABLET PO SCH (08:44)
[2020-11-21] MEDS: LABETALOL HCL 200 MG TABLET PO SCH ×2 (08:44→20:40)
[2020-11-21] MEDS: ENOXAPARIN SODIUM 60 MG/0.6 ML SQ SCH ×2 (08:44→20:40)
[2020-11-21 08:47] VITALS: BP 125/57
[2020-11-21] MEDS: ASCORBIC ACID 500 MG TAB PO SCH (08:57)
[2020-11-21] MEDS: ZINC SULFATE 220 CAPSULE PO SCH (08:58)
[2020-11-21] MEDS ORDERED: ERGOCALCIFEROL (VITAMIN D2) 50,000 UNIT CAPSULE PO SCH (09:00)
[2020-11-21] MEDS: INSULIN HUMULIN R 100 UNIT/ML 3ML SQ SCH ×7 (09:11→20:52)
[2020-11-21] MEDS: INSULIN GLARGINE 100 UNITS/ML 10 ML VIAL SQ SCH ×2 (09:12→20:52)
[2020-11-21 12:39] VITALS: BP 107/56
[2020-11-21 16:48] VITALS: BP 110/55
[2020-11-21 19:59] VITALS: BP 114/63
[2020-11-21 23:46] VITALS: BP 108/56
[2020-11-22 04:18] VITALS: BP 117/71
[2020-11-22 04:28] LABS: BASOPHILS % (AUTO) 0.2 % (0.0-5.0); EOSINOPHILS % (AUTO) 0.2 % (0.0-8.0); HEMATOCRIT 39.7 % (36-48); LYMPHOCYTES % (AUTO) 2.1 % (21.0-51.0); MEAN CORPUSCULAR HEMOGLOBIN 29.9 pg (27.0-33.0); MEAN CORPUSCULAR VOLUME 90.6 fL (79-99); MONOCYTES % (AUTO) 5.8 % (3.0-13.0); NEUTROPHILS % (AUTO) 90.5 % (40.0-77.0); PLATELET COUNT (AUTO) 319 K/uL (130-400); RED BLOOD CELL COUNT(AUTO) 4.38 MIL/uL (4.00-5.50); RED CELL DISTRIBUTION WIDTH 13.1 % (11.0-15.5); WHITE BLOOD COUNT (AUTO) 18.9 K/uL (4.8-10.8)
[2020-11-22 04:43] LABS: CREATININE 1.3 mg/dL (0.5-1.5); CRP QUANTITATIVE 2.6 mg/L (0.00-9.0); POTASSIUM 4.5 mmol/L (3.5-5.1)
[2020-11-22] MEDS: INSULIN HUMULIN R 100 UNIT/ML 3ML SQ SCH ×8 (06:18→20:55)
[2020-11-22 07:46] VITALS: BP 125/67
[2020-11-22] MEDS: BARICITINIB (EUA) 2 MG TABLET PO SCH (08:45)
[2020-11-22] MEDS: HYDROCHLOROTHIAZIDE 25 MG TABLET PO SCH (08:45)
[2020-11-22] MEDS: LISINOPRIL 10 MG TABLET PO SCH ×2 (08:45→20:42)
[2020-11-22] MEDS: AMLODIPINE 5 MG TAB PO SCH ×2 (08:45→20:42)
[2020-11-22] MEDS: FLUOXETINE HCL 20 MG CAPSULE PO SCH (08:45)
[2020-11-22] MEDS: LABETALOL HCL 200 MG TABLET PO SCH ×2 (08:45→20:42)
[2020-11-22] MEDS: ENOXAPARIN SODIUM 60 MG/0.6 ML SQ SCH ×2 (08:46→20:44)
[2020-11-22] MEDS: GLIMEPIRIDE 2 MG TABLET PO SCH ×2 (08:46→20:43)
[2020-11-22] MEDS: ASCORBIC ACID 500 MG TAB PO SCH (08:46)
[2020-11-22] MEDS: BUSPIRONE HCL 5 MG TABLET PO SCH ×3 (08:46→20:42)
[2020-11-22] MEDS: ZINC SULFATE 220 CAPSULE PO SCH (08:46)
[2020-11-22] MEDS: FAMOTIDINE 20MG TAB PO SCH ×2 (08:46→20:42)
[2020-11-22] MEDS: DEXAMETHASONE SOD PHOSPHATE 4 MG/ML 1ML VIAL IVP SCH ×2 (08:47→20:43)
[2020-11-22] MEDS: INSULIN GLARGINE 100 UNITS/ML 10 ML VIAL SQ SCH ×2 (08:56→20:56)
[2020-11-22 12:16] VITALS: BP 107/68
[2020-11-22 15:49] VITALS: BP 105/51
[2020-11-22 20:15] VITALS: BP 121/70
[2020-11-22 23:39] VITALS: BP 113/67
[2020-11-23] MEDS: ZOLPIDEM TARTRATE 5 MG TAB PO PRN ×2 (01:07→20:19)
[2020-11-23 03:15] VITALS: BP 118/63
[2020-11-23 04:31] LABS: BASOPHILS % (AUTO) 0.1 % (0.0-5.0); EOSINOPHILS % (AUTO) 0.2 % (0.0-8.0); HEMATOCRIT 39.3 % (36-48); LYMPHOCYTES % (AUTO) 1.9 % (21.0-51.0); MEAN CORPUSCULAR HGB CONC 33.1 g/dL (32.0-36.0); MEAN CORPUSCULAR VOLUME 90.8 fL (79-99); MONOCYTES % (AUTO) 5.3 % (3.0-13.0); NEUTROPHILS % (AUTO) 91.4 % (40.0-77.0); PLATELET COUNT (AUTO) 298 K/uL (130-400); RED BLOOD CELL COUNT(AUTO) 4.33 MIL/uL (4.00-5.50); RED CELL DISTRIBUTION WIDTH 12.9 % (11.0-15.5); WHITE BLOOD COUNT (AUTO) 17.2 K/uL (4.8-10.8)
[2020-11-23 04:41] LABS: CREATININE 1.2 mg/dL (0.5-1.5); POTASSIUM 4.9 mmol/L (3.5-5.1)
[2020-11-23] MEDS: INSULIN HUMULIN R 100 UNIT/ML 3ML SQ SCH ×7 (06:15→20:27)
[2020-11-23] MEDS: INSULIN GLARGINE 100 UNITS/ML 10 ML VIAL SQ SCH ×2 (08:21→20:21)
[2020-11-23] MEDS: FLUOXETINE HCL 20 MG CAPSULE PO SCH (08:23)
[2020-11-23] MEDS: ASCORBIC ACID 500 MG TAB PO SCH (08:24)
[2020-11-23] MEDS: LISINOPRIL 10 MG TABLET PO SCH ×2 (08:25→20:19)
[2020-11-23] MEDS: AMLODIPINE 5 MG TAB PO SCH ×2 (08:25→20:19)
[2020-11-23] MEDS: GLIMEPIRIDE 2 MG TABLET PO SCH ×2 (08:26→20:19)
[2020-11-23] MEDS: HYDROCHLOROTHIAZIDE 25 MG TABLET PO SCH (08:26)
[2020-11-23] MEDS: ZINC SULFATE 220 CAPSULE PO SCH (08:26)
[2020-11-23] MEDS: ENOXAPARIN SODIUM 60 MG/0.6 ML SQ SCH ×2 (08:26→20:20)
[2020-11-23] MEDS: BUSPIRONE HCL 5 MG TABLET PO SCH ×3 (08:26→20:19)
[2020-11-23] MEDS: BARICITINIB (EUA) 2 MG TABLET PO SCH (08:26)
[2020-11-23] MEDS: FAMOTIDINE 20MG TAB PO SCH ×2 (08:26→20:19)
[2020-11-23] MEDS: DEXAMETHASONE SOD PHOSPHATE 4 MG/ML 1ML VIAL IVP SCH (08:26)
[2020-11-23] MEDS: LABETALOL HCL 200 MG TABLET PO SCH ×2 (08:27→20:18)
[2020-11-23 08:53] VITALS: BP 116/55
[2020-11-23 12:18] VITALS: BP 93/52
[2020-11-23 19:48] VITALS: BP 126/76
[2020-11-23 23:33] VITALS: BP 112/58
[2020-11-24 03:49] VITALS: BP 112/58
[2020-11-24 04:19] LABS: BASOPHILS % (AUTO) 0.1 % (0.0-5.0); EOSINOPHILS % (AUTO) 1.1 % (0.0-8.0); HEMATOCRIT 39.7 % (36-48); LYMPHOCYTES % (AUTO) 4.3 % (21.0-51.0); MEAN CORPUSCULAR HEMOGLOBIN 30.4 pg (27.0-33.0); MEAN CORPUSCULAR HGB CONC 32.7 g/dL (32.0-36.0); NEUTROPHILS % (AUTO) 84.5 % (40.0-77.0); PLATELET COUNT (AUTO) 302 K/uL (130-400); RED BLOOD CELL COUNT(AUTO) 4.27 MIL/uL (4.00-5.50); RED CELL DISTRIBUTION WIDTH 13.2 % (11.0-15.5); WHITE BLOOD COUNT (AUTO) 16.6 K/uL (4.8-10.8)
[2020-11-24 04:44] LABS: ALBUMIN 2.5 g/dL (3.5-5.0); BILIRUBIN,TOTAL 0.4 mg/dL (0.2-1.0); CREATININE 1.2 mg/dL (0.5-1.5); MAGNESIUM 2.3 mg/dL (1.80-2.40); POTASSIUM 4.1 mmol/L (3.5-5.1); TOTAL PROTEIN, SERUM 6.3 g/dL (6.0-8.3)
[2020-11-24] MEDS: INSULIN HUMULIN R 100 UNIT/ML 3ML SQ SCH ×6 (05:18→20:26)
[2020-11-24 07:37] VITALS: BP 108/75
[2020-11-24] MEDS: ZINC SULFATE 220 CAPSULE PO SCH (08:10)
[2020-11-24] MEDS: BARICITINIB (EUA) 2 MG TABLET PO SCH (08:10)
[2020-11-24] MEDS: ASCORBIC ACID 500 MG TAB PO SCH (08:11)
[2020-11-24] MEDS: AMLODIPINE 5 MG TAB PO SCH ×2 (08:11→20:20)
[2020-11-24] MEDS: LABETALOL HCL 200 MG TABLET PO SCH ×2 (08:11→20:20)
[2020-11-24] MEDS: LISINOPRIL 10 MG TABLET PO SCH ×2 (08:11→20:21)
[2020-11-24] MEDS: HYDROCHLOROTHIAZIDE 25 MG TABLET PO SCH (08:11)
[2020-11-24] MEDS: FLUOXETINE HCL 20 MG CAPSULE PO SCH (08:11)
[2020-11-24] MEDS: FAMOTIDINE 20MG TAB PO SCH ×2 (08:11→20:32)
[2020-11-24] MEDS: DEXAMETHASONE SOD PHOSPHATE 4 MG/ML 1ML VIAL IVP SCH (08:12)
[2020-11-24] MEDS: ENOXAPARIN SODIUM 60 MG/0.6 ML SQ SCH ×2 (08:12→20:21)
[2020-11-24] MEDS: GLIMEPIRIDE 2 MG TABLET PO SCH ×2 (09:29→20:20)
[2020-11-24] MEDS: BUSPIRONE HCL 5 MG TABLET PO SCH ×3 (09:49→20:20)
[2020-11-24 11:20] VITALS: BP 103/52
[2020-11-24] MEDS: INSULIN GLARGINE 100 UNITS/ML 10 ML VIAL SQ SCH ×2 (11:30→20:32)
[2020-11-24 16:19] VITALS: BP 106/59
[2020-11-24 20:17] VITALS: BP 109/57
[2020-11-24 23:41] VITALS: BP 111/57
[2020-11-25 03:51] VITALS: BP 114/59
[2020-11-25 04:19] LABS: BASOPHILS % (AUTO) 0.1 % (0.0-5.0); EOSINOPHILS % (AUTO) 0.9 % (0.0-8.0); HEMATOCRIT 36.2 % (36-48); LYMPHOCYTES % (AUTO) 5.1 % (21.0-51.0); MEAN CORPUSCULAR HEMOGLOBIN 30.3 pg (27.0-33.0); MEAN CORPUSCULAR HGB CONC 33.4 g/dL (32.0-36.0); MEAN CORPUSCULAR VOLUME 90.7 fL (79-99); MONOCYTES % (AUTO) 8.9 % (3.0-13.0); NEUTROPHILS % (AUTO) 84.2 % (40.0-77.0); PLATELET COUNT (AUTO) 268 K/uL (130-400); RED BLOOD CELL COUNT(AUTO) 3.99 MIL/uL (4.00-5.50)
[2020-11-25 04:39] LABS: ALBUMIN 2.4 g/dL (3.5-5.0); BILIRUBIN,TOTAL 0.4 mg/dL (0.2-1.0); CREATININE 1.1 mg/dL (0.5-1.5); CRP QUANTITATIVE 44.5 mg/L (0.00-9.0); POTASSIUM 4.3 mmol/L (3.5-5.1); TOTAL PROTEIN, SERUM 6.2 g/dL (6.0-8.3)
[2020-11-25] MEDS: INSULIN HUMULIN R 100 UNIT/ML 3ML SQ SCH ×7 (06:00→21:11)
[2020-11-25 06:55] VITALS: BP 113/50
[2020-11-25] MEDS: ZINC SULFATE 220 CAPSULE PO SCH (07:16)
[2020-11-25] MEDS: ASCORBIC ACID 500 MG TAB PO SCH (07:16)
[2020-11-25] MEDS: DEXAMETHASONE SOD PHOSPHATE 4 MG/ML 1ML VIAL IVP SCH (07:17)
[2020-11-25] MEDS: BUSPIRONE HCL 5 MG TABLET PO SCH ×3 (07:17→21:08)
[2020-11-25] MEDS: LISINOPRIL 10 MG TABLET PO SCH ×2 (07:17→21:08)
[2020-11-25] MEDS: LABETALOL HCL 200 MG TABLET PO SCH ×2 (07:17→21:09)
[2020-11-25] MEDS: FAMOTIDINE 20MG TAB PO SCH ×2 (07:17→21:08)
[2020-11-25] MEDS: HYDROCHLOROTHIAZIDE 25 MG TABLET PO SCH (07:17)
[2020-11-25] MEDS: AMLODIPINE 5 MG TAB PO SCH ×2 (07:17→21:08)
[2020-11-25] MEDS: FLUOXETINE HCL 20 MG CAPSULE PO SCH (07:19)
[2020-11-25] MEDS: INSULIN GLARGINE 100 UNITS/ML 10 ML VIAL SQ SCH ×2 (07:19→21:12)
[2020-11-25] MEDS: ENOXAPARIN SODIUM 60 MG/0.6 ML SQ SCH ×2 (07:23→21:09)
[2020-11-25] MEDS: GLIMEPIRIDE 2 MG TABLET PO SCH ×2 (07:54→21:08)
[2020-11-25 11:06] VITALS: BP 106/61
[2020-11-25] MEDS ORDERED: SOLU-MEDROL 40MG VIAL IVP ONE (14:00)
[2020-11-25] MEDS ORDERED: ALBUTEROL INHALER 90MCG/INH IH PRN (14:00)
[2020-11-25 15:22] VITALS: BP 103/55
[2020-11-25 19:31] VITALS: BP 139/78
[2020-11-25] MEDS ORDERED: DEXAMETHASONE SOD PHOSPHATE 4 MG/ML 1ML VIAL IVP SCH (21:00)
[2020-11-25 23:26] VITALS: BP 122/72
[2020-11-26] MEDS: ZOLPIDEM TARTRATE 5 MG TAB PO PRN ×2 (02:18→21:33)
[2020-11-26 03:31] VITALS: BP 119/64
[2020-11-26 04:27] LABS: BASOPHILS % (AUTO) 0.1 % (0.0-5.0); EOSINOPHILS % (AUTO) 0.3 % (0.0-8.0); HEMATOCRIT 38.8 % (36-48); MEAN CORPUSCULAR HEMOGLOBIN 29.9 pg (27.0-33.0); MEAN CORPUSCULAR HGB CONC 32.5 g/dL (32.0-36.0); MEAN CORPUSCULAR VOLUME 91.9 fL (79-99); MONOCYTES % (AUTO) 8.8 % (3.0-13.0); PLATELET COUNT (AUTO) 281 K/uL (130-400); RED BLOOD CELL COUNT(AUTO) 4.22 MIL/uL (4.00-5.50); WHITE BLOOD COUNT (AUTO) 12.1 K/uL (4.8-10.8)
[2020-11-26 04:57] LABS: ALBUMIN 2.5 g/dL (3.5-5.0); BILIRUBIN,TOTAL 0.3 mg/dL (0.2-1.0); POTASSIUM 4.4 mmol/L (3.5-5.1); TOTAL PROTEIN, SERUM 6.5 g/dL (6.0-8.3)
[2020-11-26 06:02] LABS: LYMPHOCYTES % (MANUAL) 5 % (22-44); MAN.DIFF COMMENT-IMPRESSION MANUAL DIFFERENTIAL; MONOCYTES % (MANUAL) 6 % (2-9); PLATELET MORPHOLOGY COMMENT ADEQUATE; REACTIVE LYMPHOCYTES 1 % (0-0); SEGMENTED NEUTROPHILS % 88 % (40-70)
[2020-11-26] MEDS: INSULIN HUMULIN R 100 UNIT/ML 3ML SQ SCH ×8 (06:20→21:29)
[2020-11-26 08:00] VITALS: BP 117/74
[2020-11-26] MEDS: INSULIN GLARGINE 100 UNITS/ML 10 ML VIAL SQ SCH ×2 (09:51→21:29)
[2020-11-26] MEDS: LISINOPRIL 10 MG TABLET PO SCH ×2 (10:01→21:10)
[2020-11-26] MEDS: HYDROCHLOROTHIAZIDE 25 MG TABLET PO SCH (10:01)
[2020-11-26] MEDS: LABETALOL HCL 200 MG TABLET PO SCH ×2 (10:01→21:09)
[2020-11-26] MEDS: FAMOTIDINE 20MG TAB PO SCH ×2 (10:01→21:09)
[2020-11-26] MEDS: BUSPIRONE HCL 5 MG TABLET PO SCH ×3 (10:02→21:09)
[2020-11-26] MEDS: FLUOXETINE HCL 20 MG CAPSULE PO SCH (10:02)
[2020-11-26] MEDS: GLIMEPIRIDE 2 MG TABLET PO SCH ×2 (10:03→21:07)
[2020-11-26] MEDS: AMLODIPINE 5 MG TAB PO SCH ×2 (10:04→21:10)
[2020-11-26] MEDS: DEXAMETHASONE SOD PHOSPHATE 4 MG/ML 1ML VIAL IVP SCH ×2 (10:05→21:11)
[2020-11-26] MEDS: ENOXAPARIN SODIUM 60 MG/0.6 ML SQ SCH ×2 (10:10→21:08)
[2020-11-26] MEDS: DOCUSATE SODIUM 100 MG CAP PO SCH (11:27)
[2020-11-26 12:00] VITALS: BP 116/61
[2020-11-26 16:00] VITALS: BP 111/58
[2020-11-26 19:55] VITALS: BP 120/67
[2020-11-27] VITALS (7 sets, daily range): BP systolic 117–127; BP diastolic 62–76
[2020-11-27 04:09] LABS: BASOPHILS % (AUTO) 0.1 % (0.0-5.0); EOSINOPHILS % (AUTO) 0.2 % (0.0-8.0); HEMATOCRIT 37.8 % (36-48); LYMPHOCYTES % (AUTO) 3.2 % (21.0-51.0); MEAN CORPUSCULAR HEMOGLOBIN 30.3 pg (27.0-33.0); MEAN CORPUSCULAR HGB CONC 33.3 g/dL (32.0-36.0); MEAN CORPUSCULAR VOLUME 90.9 fL (79-99); MONOCYTES % (AUTO) 4.8 % (3.0-13.0); NEUTROPHILS % (AUTO) 90.8 % (40.0-77.0); PLATELET COUNT (AUTO) 267 K/uL (130-400); RED BLOOD CELL COUNT(AUTO) 4.16 MIL/uL (4.00-5.50); RED CELL DISTRIBUTION WIDTH 12.8 % (11.0-15.5); WHITE BLOOD COUNT (AUTO) 11.2 K/uL (4.8-10.8)
[2020-11-27 04:29] LABS: ALBUMIN 2.5 g/dL (3.5-5.0); BILIRUBIN,TOTAL 0.4 mg/dL (0.2-1.0); CRP QUANTITATIVE 17.5 mg/L (0.00-9.0); MAGNESIUM 2.4 mg/dL (1.80-2.40); POTASSIUM 4.8 mmol/L (3.5-5.1); TOTAL PROTEIN, SERUM 6.5 g/dL (6.0-8.3)
[2020-11-27] MEDS: INSULIN HUMULIN R 100 UNIT/ML 3ML SQ SCH ×7 (06:45→21:15)
[2020-11-27] MEDS: INSULIN GLARGINE 100 UNITS/ML 10 ML VIAL SQ SCH ×2 (07:41→21:16)
[2020-11-27] MEDS: FAMOTIDINE 20MG TAB PO SCH ×2 (08:33→21:05)
[2020-11-27] MEDS: DOCUSATE SODIUM 100 MG CAP PO SCH ×2 (08:33→21:04)
[2020-11-27] MEDS: AMLODIPINE 5 MG TAB PO SCH ×2 (08:33→21:05)
[2020-11-27] MEDS: DEXAMETHASONE SOD PHOSPHATE 4 MG/ML 1ML VIAL IVP SCH ×2 (08:33→21:05)
[2020-11-27] MEDS: HYDROCHLOROTHIAZIDE 25 MG TABLET PO SCH (08:33)
[2020-11-27] MEDS: FLUOXETINE HCL 20 MG CAPSULE PO SCH (08:33)
[2020-11-27] MEDS: LABETALOL HCL 200 MG TABLET PO SCH ×3 (08:34→21:04)
[2020-11-27] MEDS: BUSPIRONE HCL 5 MG TABLET PO SCH ×3 (08:34→21:04)
[2020-11-27] MEDS: LISINOPRIL 10 MG TABLET PO SCH ×2 (08:35→21:05)
[2020-11-27] MEDS: ENOXAPARIN SODIUM 60 MG/0.6 ML SQ SCH ×2 (08:35→21:05)
[2020-11-27] MEDS: GLIMEPIRIDE 2 MG TABLET PO SCH ×2 (10:34→21:06)
[2020-11-27] MEDS ORDERED: LACTULOSE 20 GM/30 ML UDCUP PO PRN (19:00)
[2020-11-28] MEDS: ZOLPIDEM TARTRATE 5 MG TAB PO PRN (02:17)
[2020-11-28 03:00] VITALS: BP 127/65
[2020-11-28 04:19] LABS: EOSINOPHILS % (AUTO) 0.3 % (0.0-8.0); HEMATOCRIT 37.6 % (36-48); LYMPHOCYTES % (AUTO) 3.3 % (21.0-51.0); MEAN CORPUSCULAR HEMOGLOBIN 30.1 pg (27.0-33.0); MEAN CORPUSCULAR VOLUME 91.3 fL (79-99); MONOCYTES % (AUTO) 4.2 % (3.0-13.0); NEUTROPHILS % (AUTO) 91.4 % (40.0-77.0); PLATELET COUNT (AUTO) 242 K/uL (130-400); RED BLOOD CELL COUNT(AUTO) 4.12 MIL/uL (4.00-5.50); RED CELL DISTRIBUTION WIDTH 12.8 % (11.0-15.5); WHITE BLOOD COUNT (AUTO) 10.4 K/uL (4.8-10.8)
[2020-11-28] MEDS: INSULIN HUMULIN R 100 UNIT/ML 3ML SQ SCH ×7 (06:30→21:04)
[2020-11-28] MEDS: BUSPIRONE HCL 5 MG TABLET PO SCH ×3 (08:38→20:52)
[2020-11-28] MEDS: DOCUSATE SODIUM 100 MG CAP PO SCH ×2 (08:38→20:52)
[2020-11-28] MEDS: HYDROCHLOROTHIAZIDE 25 MG TABLET PO SCH (08:38)
[2020-11-28] MEDS: FAMOTIDINE 20MG TAB PO SCH ×2 (08:38→20:53)
[2020-11-28] MEDS: GLIMEPIRIDE 2 MG TABLET PO SCH ×2 (08:38→20:53)
[2020-11-28] MEDS: LISINOPRIL 10 MG TABLET PO SCH ×2 (08:38→20:53)
[2020-11-28] MEDS: FLUOXETINE HCL 20 MG CAPSULE PO SCH (08:38)
[2020-11-28] MEDS: AMLODIPINE 5 MG TAB PO SCH ×2 (08:38→20:52)
[2020-11-28] MEDS: DEXAMETHASONE SOD PHOSPHATE 4 MG/ML 1ML VIAL IVP SCH ×2 (08:39→20:52)
[2020-11-28] MEDS: LABETALOL HCL 200 MG TABLET PO SCH ×2 (08:39→20:53)
[2020-11-28] MEDS: ENOXAPARIN SODIUM 60 MG/0.6 ML SQ SCH ×2 (08:40→20:54)
[2020-11-28] MEDS: INSULIN GLARGINE 100 UNITS/ML 10 ML VIAL SQ SCH ×2 (08:54→21:04)
[2020-11-28 08:59] VITALS: BP 125/67
[2020-11-28 12:47] VITALS: BP 122/61
[2020-11-28 16:13] VITALS: BP 126/64
[2020-11-28 19:27] VITALS: BP 139/66
[2020-11-28 22:58] VITALS: BP 119/65
[2020-11-29 03:44] VITALS: BP 120/67
[2020-11-29 05:03] LABS: BASOPHILS % (AUTO) 0.1 % (0.0-5.0); EOSINOPHILS % (AUTO) 0.3 % (0.0-8.0); LYMPHOCYTES % (AUTO) 3.9 % (21.0-51.0); MEAN CORPUSCULAR HEMOGLOBIN 30.4 pg (27.0-33.0); MEAN CORPUSCULAR HGB CONC 33.5 g/dL (32.0-36.0); MEAN CORPUSCULAR VOLUME 90.7 fL (79-99); MONOCYTES % (AUTO) 5.6 % (3.0-13.0); NEUTROPHILS % (AUTO) 89.1 % (40.0-77.0); PLATELET COUNT (AUTO) 237 K/uL (130-400); RED BLOOD CELL COUNT(AUTO) 4.08 MIL/uL (4.00-5.50); RED CELL DISTRIBUTION WIDTH 12.8 % (11.0-15.5); WHITE BLOOD COUNT (AUTO) 10.2 K/uL (4.8-10.8)
[2020-11-29] MEDS: ZOLPIDEM TARTRATE 5 MG TAB PO PRN (05:14)
[2020-11-29] MEDS: INSULIN HUMULIN R 100 UNIT/ML 3ML SQ SCH ×7 (06:30→20:23)
[2020-11-29 08:04] VITALS: BP 116/68
[2020-11-29] MEDS: FLUOXETINE HCL 20 MG CAPSULE PO SCH (08:28)
[2020-11-29] MEDS: DOCUSATE SODIUM 100 MG CAP PO SCH ×2 (08:28→20:31)
[2020-11-29] MEDS: FAMOTIDINE 20MG TAB PO SCH ×2 (08:28→20:34)
[2020-11-29] MEDS: BUSPIRONE HCL 5 MG TABLET PO SCH ×3 (08:29→20:32)
[2020-11-29] MEDS: GLIMEPIRIDE 2 MG TABLET PO SCH ×2 (08:29→20:33)
[2020-11-29] MEDS: DEXAMETHASONE SOD PHOSPHATE 4 MG/ML 1ML VIAL IVP SCH ×2 (08:29→20:31)
[2020-11-29] MEDS: AMLODIPINE 5 MG TAB PO SCH ×2 (08:29→20:31)
[2020-11-29] MEDS: HYDROCHLOROTHIAZIDE 25 MG TABLET PO SCH (08:29)
[2020-11-29] MEDS: LISINOPRIL 10 MG TABLET PO SCH ×2 (08:29→20:32)
[2020-11-29] MEDS: LABETALOL HCL 200 MG TABLET PO SCH ×2 (08:30→20:32)
[2020-11-29] MEDS: ENOXAPARIN SODIUM 60 MG/0.6 ML SQ SCH ×2 (08:31→20:33)
[2020-11-29] MEDS: INSULIN GLARGINE 100 UNITS/ML 10 ML VIAL SQ SCH ×2 (08:31→20:24)
[2020-11-29 11:34] VITALS: BP 112/58
[2020-11-29 15:47] VITALS: BP 113/57
[2020-11-29 19:12] VITALS: BP 109/73
[2020-11-29 22:58] VITALS: BP 113/59
[2020-11-30 03:42] VITALS: BP 120/71
[2020-11-30 04:23] LABS: HEMATOCRIT 37.4 % (36-48); MEAN CORPUSCULAR HEMOGLOBIN 30.2 pg (27.0-33.0); MEAN CORPUSCULAR HGB CONC 33.2 g/dL (32.0-36.0); RED BLOOD CELL COUNT(AUTO) 4.11 MIL/uL (4.00-5.50); RED CELL DISTRIBUTION WIDTH 12.9 % (11.0-15.5); WHITE BLOOD COUNT (AUTO) 10.9 K/uL (4.8-10.8)
[2020-11-30 04:40] LABS: CARBON DIOXIDE 29 mmol/L (21-32); CHLORIDE 103 mmol/L (101-111); GLOMERULAR FILTR. RATE CALC 64 mL/min (>60); GLUCOSE,RANDOM 181 mg/dL (70-105); POTASSIUM 4.6 mmol/L (3.5-5.1); SODIUM SERUM 138 mmol/L (136-145); UREA NITROGEN, BLOOD 38 mg/dL (7-18)
[2020-11-30 05:00] LABS: CRP QUANTITATIVE < 2.00 mg/L (0.00-9.0)
[2020-11-30] MEDS: INSULIN HUMULIN R 100 UNIT/ML 3ML SQ SCH ×7 (05:27→22:10)
[2020-11-30 08:00] VITALS: BP 120/66
[2020-11-30] MEDS: DEXAMETHASONE SOD PHOSPHATE 4 MG/ML 1ML VIAL IVP SCH ×2 (08:32→21:58)
[2020-11-30] MEDS: HYDROCHLOROTHIAZIDE 25 MG TABLET PO SCH (08:33)
[2020-11-30] MEDS: BUSPIRONE HCL 5 MG TABLET PO SCH ×3 (08:33→21:58)
[2020-11-30] MEDS: FLUOXETINE HCL 20 MG CAPSULE PO SCH (08:33)
[2020-11-30] MEDS: DOCUSATE SODIUM 100 MG CAP PO SCH ×2 (08:33→21:58)
[2020-11-30] MEDS: ENOXAPARIN SODIUM 60 MG/0.6 ML SQ SCH (08:34)
[2020-11-30] MEDS: FAMOTIDINE 20MG TAB PO SCH ×2 (08:34→22:09)
[2020-11-30] MEDS: LISINOPRIL 10 MG TABLET PO SCH ×2 (08:34→22:09)
[2020-11-30] MEDS: INSULIN GLARGINE 100 UNITS/ML 10 ML VIAL SQ SCH ×2 (08:43→22:10)
[2020-11-30] MEDS: GLIMEPIRIDE 2 MG TABLET PO SCH ×2 (09:00→21:58)
[2020-11-30] MEDS: LABETALOL HCL 200 MG TABLET PO SCH ×2 (09:00→21:00)
[2020-11-30] MEDS: AMLODIPINE 5 MG TAB PO SCH ×2 (09:00→22:09)
[2020-11-30 12:00] VITALS: BP 114/71
[2020-11-30 16:00] VITALS: BP 114/79
[2020-11-30 19:36] VITALS: BP 111/76
[2020-11-30] MEDS: ENOXAPARIN SODIUM 40 MG/0.4 ML SYRINGE SQ SCH (22:11)
[2020-11-30 23:31] VITALS: BP 108/55
[2020-12-01 03:37] VITALS: BP 112/56
[2020-12-01 04:39] LABS: BASOPHILS % (AUTO) 0.1 % (0.0-5.0); EOSINOPHILS % (AUTO) 0.6 % (0.0-8.0); HEMATOCRIT 36.9 % (36-48); LYMPHOCYTES % (AUTO) 6.9 % (21.0-51.0); MEAN CORPUSCULAR HEMOGLOBIN 29.8 pg (27.0-33.0); MEAN CORPUSCULAR HGB CONC 33.1 g/dL (32.0-36.0); MEAN CORPUSCULAR VOLUME 90.2 fL (79-99); MONOCYTES % (AUTO) 6.7 % (3.0-13.0); NEUTROPHILS % (AUTO) 84.3 % (40.0-77.0); PLATELET COUNT (AUTO) 222 K/uL (130-400); RED BLOOD CELL COUNT(AUTO) 4.09 MIL/uL (4.00-5.50); RED CELL DISTRIBUTION WIDTH 13.1 % (11.0-15.5); WHITE BLOOD COUNT (AUTO) 10.9 K/uL (4.8-10.8)
[2020-12-01 04:54] LABS: ALANINE AMINOTRANSFERASE 76 U/L (12-78); ALBUMIN 2.8 g/dL (3.5-5.0); ASPARTATE AMINOTRANSFERASE 18 U/L (10-37); BILIRUBIN,TOTAL 0.4 mg/dL (0.2-1.0); CARBON DIOXIDE 28 mmol/L (21-32); CHLORIDE 101 mmol/L (101-111); GLOMERULAR FILTR. RATE CALC 64 mL/min (>60); GLUCOSE,RANDOM 186 mg/dL (70-105); POTASSIUM 4.4 mmol/L (3.5-5.1); SODIUM SERUM 137 mmol/L (136-145); TOTAL PROTEIN, SERUM 6.3 g/dL (6.0-8.3); UREA NITROGEN, BLOOD 36 mg/dL (7-18)
[2020-12-01 04:55] LABS: CRP QUANTITATIVE < 2.00 mg/L (0.00-9.0)
[2020-12-01] MEDS: INSULIN HUMULIN R 100 UNIT/ML 3ML SQ SCH ×7 (07:30→19:55)
[2020-12-01] MEDS: HYDROCHLOROTHIAZIDE 25 MG TABLET PO SCH (08:20)
[2020-12-01] MEDS: BUSPIRONE HCL 5 MG TABLET PO SCH ×3 (08:20→20:30)
[2020-12-01] MEDS: FAMOTIDINE 20MG TAB PO SCH ×2 (08:20→20:30)
[2020-12-01] MEDS: DOCUSATE SODIUM 100 MG CAP PO SCH ×2 (08:20→20:29)
[2020-12-01] MEDS: FLUOXETINE HCL 20 MG CAPSULE PO SCH (08:21)
[2020-12-01] MEDS: AMLODIPINE 5 MG TAB PO SCH ×2 (08:21→20:30)
[2020-12-01] MEDS: LISINOPRIL 10 MG TABLET PO SCH ×2 (08:21→20:38)
[2020-12-01] MEDS: DEXAMETHASONE SOD PHOSPHATE 4 MG/ML 1ML VIAL IVP SCH ×2 (08:23→20:21)
[2020-12-01] MEDS: ENOXAPARIN SODIUM 40 MG/0.4 ML SYRINGE SQ SCH ×2 (08:24→20:29)
[2020-12-01] MEDS: INSULIN GLARGINE 100 UNITS/ML 10 ML VIAL SQ SCH ×2 (08:27→20:23)
[2020-12-01] MEDS: LABETALOL HCL 200 MG TABLET PO SCH ×2 (08:35→21:00)
[2020-12-01] MEDS: GLIMEPIRIDE 2 MG TABLET PO SCH ×2 (08:37→20:31)
[2020-12-01 12:00] VITALS: BP 123/68
[2020-12-01 16:00] VITALS: BP 133/83
[2020-12-01 19:52] VITALS: BP 109/69
[2020-12-01 23:11] VITALS: BP 108/71
[2020-12-02] VITALS (7 sets, daily range): BP systolic 101–142; BP diastolic 54–91
[2020-12-02 05:06] LABS: BASOPHILS % (AUTO) 0.2 % (0.0-5.0); EOSINOPHILS % (AUTO) 0.5 % (0.0-8.0); HEMATOCRIT 38.3 % (36-48); LYMPHOCYTES % (AUTO) 7.1 % (21.0-51.0); MEAN CORPUSCULAR HEMOGLOBIN 29.9 pg (27.0-33.0); MEAN CORPUSCULAR HGB CONC 32.9 g/dL (32.0-36.0); MONOCYTES % (AUTO) 6.9 % (3.0-13.0); NEUTROPHILS % (AUTO) 83.2 % (40.0-77.0); PLATELET COUNT (AUTO) 213 K/uL (130-400); RED BLOOD CELL COUNT(AUTO) 4.21 MIL/uL (4.00-5.50); RED CELL DISTRIBUTION WIDTH 13.1 % (11.0-15.5); WHITE BLOOD COUNT (AUTO) 10.9 K/uL (4.8-10.8)
[2020-12-02 05:46] LABS: ALANINE AMINOTRANSFERASE 88 U/L (12-78); ALBUMIN 2.8 g/dL (3.5-5.0); ASPARTATE AMINOTRANSFERASE 19 U/L (10-37); BILIRUBIN,TOTAL 0.3 mg/dL (0.2-1.0); CARBON DIOXIDE 26 mmol/L (21-32); CHLORIDE 101 mmol/L (101-111); CREATININE 1.1 mg/dL (0.5-1.5); GLOMERULAR FILTR. RATE CALC 58 mL/min (>60); GLUCOSE,RANDOM 247 mg/dL (70-105); POTASSIUM 4.6 mmol/L (3.5-5.1); SODIUM SERUM 136 mmol/L (136-145); TOTAL PROTEIN, SERUM 6.3 g/dL (6.0-8.3); UREA NITROGEN, BLOOD 40 mg/dL (7-18)
[2020-12-02 06:00] LABS: CRP QUANTITATIVE < 2.00 mg/L (0.00-9.0)
[2020-12-02] MEDS: INSULIN HUMULIN R 100 UNIT/ML 3ML SQ SCH ×7 (06:51→21:17)
[2020-12-02] MEDS: GLIMEPIRIDE 2 MG TABLET PO SCH ×2 (07:53→21:02)
[2020-12-02] MEDS: ENOXAPARIN SODIUM 40 MG/0.4 ML SYRINGE SQ SCH ×2 (07:53→21:08)
[2020-12-02] MEDS: BUSPIRONE HCL 5 MG TABLET PO SCH ×3 (07:54→21:03)
[2020-12-02] MEDS: DOCUSATE SODIUM 100 MG CAP PO SCH ×2 (07:54→21:03)
[2020-12-02] MEDS: FAMOTIDINE 20MG TAB PO SCH ×2 (07:54→21:02)
[2020-12-02] MEDS: DEXAMETHASONE 4 MG TAB PO SCH (07:54)
[2020-12-02] MEDS: FLUOXETINE HCL 20 MG CAPSULE PO SCH (07:54)
[2020-12-02] MEDS: INSULIN GLARGINE 100 UNITS/ML 10 ML VIAL SQ SCH ×2 (07:59→21:17)
[2020-12-02] MEDS: LISINOPRIL 10 MG TABLET PO SCH ×2 (08:07→21:03)
[2020-12-02] MEDS: HYDROCHLOROTHIAZIDE 25 MG TABLET PO SCH (08:07)
[2020-12-02] MEDS: AMLODIPINE 5 MG TAB PO SCH ×2 (08:07→21:03)
[2020-12-02] MEDS: LABETALOL HCL 200 MG TABLET PO SCH ×2 (08:07→21:02)
[2020-12-03 05:39] VITALS: BP 130/58
[2020-12-03 06:07] LABS: BASOPHILS % (AUTO) 0.2 % (0.0-5.0); EOSINOPHILS % (AUTO) 3.1 % (0.0-8.0); HEMATOCRIT 39.1 % (36-48); LYMPHOCYTES % (AUTO) 18.2 % (21.0-51.0); MEAN CORPUSCULAR HEMOGLOBIN 30.2 pg (27.0-33.0); MEAN CORPUSCULAR HGB CONC 32.7 g/dL (32.0-36.0); MEAN CORPUSCULAR VOLUME 92.2 fL (79-99); MONOCYTES % (AUTO) 8.6 % (3.0-13.0); NEUTROPHILS % (AUTO) 66.2 % (40.0-77.0); PLATELET COUNT (AUTO) 201 K/uL (130-400); RED BLOOD CELL COUNT(AUTO) 4.24 MIL/uL (4.00-5.50); RED CELL DISTRIBUTION WIDTH 13.4 % (11.0-15.5); WHITE BLOOD COUNT (AUTO) 11.2 K/uL (4.8-10.8)
[2020-12-03 06:28] LABS: ALBUMIN 2.8 g/dL (3.5-5.0); BILIRUBIN,TOTAL 0.4 mg/dL (0.2-1.0); CREATININE 1.2 mg/dL (0.5-1.5); POTASSIUM 3.9 mmol/L (3.5-5.1); TOTAL PROTEIN, SERUM 6.2 g/dL (6.0-8.3)
[2020-12-03] MEDS: INSULIN HUMULIN R 100 UNIT/ML 3ML SQ SCH ×7 (06:33→20:15)
[2020-12-03 08:00] VITALS: BP 153/77
[2020-12-03] MEDS: INSULIN GLARGINE 100 UNITS/ML 10 ML VIAL SQ SCH ×2 (08:28→20:16)
[2020-12-03] MEDS: FAMOTIDINE 20MG TAB PO SCH ×2 (08:29→20:10)
[2020-12-03] MEDS: FLUOXETINE HCL 20 MG CAPSULE PO SCH (08:29)
[2020-12-03] MEDS: AMLODIPINE 5 MG TAB PO SCH ×2 (08:29→20:10)
[2020-12-03] MEDS: GLIMEPIRIDE 2 MG TABLET PO SCH ×2 (08:29→20:17)
[2020-12-03] MEDS: LABETALOL HCL 200 MG TABLET PO SCH ×2 (08:30→21:00)
[2020-12-03] MEDS: DEXAMETHASONE 4 MG TAB PO SCH (08:30)
[2020-12-03] MEDS: DOCUSATE SODIUM 100 MG CAP PO SCH ×2 (08:30→20:09)
[2020-12-03] MEDS: HYDROCHLOROTHIAZIDE 25 MG TABLET PO SCH (08:30)
[2020-12-03] MEDS: BUSPIRONE HCL 5 MG TABLET PO SCH ×3 (08:31→20:09)
[2020-12-03] MEDS: LISINOPRIL 10 MG TABLET PO SCH ×2 (08:32→20:10)
[2020-12-03] MEDS: ENOXAPARIN SODIUM 40 MG/0.4 ML SYRINGE SQ SCH ×2 (08:33→20:14)
[2020-12-03] MEDS: POLYETHYLENE GLYCOL 3350 17 GM POWD.PACK PO SCH (11:59)
[2020-12-03 12:00] VITALS: BP 102/65
[2020-12-03 16:00] VITALS: BP 113/72
[2020-12-03 20:04] VITALS: BP 124/75
[2020-12-04 00:15] VITALS: BP 121/76
[2020-12-04 03:39] VITALS: BP 111/60
[2020-12-04 05:27] LABS: BASOPHILS % (AUTO) 0.3 % (0.0-5.0); HEMATOCRIT 36.3 % (36-48); LYMPHOCYTES % (AUTO) 17.8 % (21.0-51.0); MEAN CORPUSCULAR HEMOGLOBIN 30.3 pg (27.0-33.0); MEAN CORPUSCULAR HGB CONC 32.5 g/dL (32.0-36.0); MEAN CORPUSCULAR VOLUME 93.1 fL (79-99); MONOCYTES % (AUTO) 9.7 % (3.0-13.0); NEUTROPHILS % (AUTO) 65.6 % (40.0-77.0); PLATELET COUNT (AUTO) 166 K/uL (130-400); RED CELL DISTRIBUTION WIDTH 13.6 % (11.0-15.5); WHITE BLOOD COUNT (AUTO) 9.7 K/uL (4.8-10.8)
[2020-12-04] MEDS: INSULIN HUMULIN R 100 UNIT/ML 3ML SQ SCH ×6 (05:42→20:36)
[2020-12-04 05:47] LABS: CREATININE 1.2 mg/dL (0.5-1.5); POTASSIUM 4.2 mmol/L (3.5-5.1)
[2020-12-04] MEDS: INSULIN GLARGINE 100 UNITS/ML 10 ML VIAL SQ SCH ×2 (07:57→20:36)
[2020-12-04] MEDS: BUSPIRONE HCL 5 MG TABLET PO SCH ×3 (07:59→20:31)
[2020-12-04] MEDS: GLIMEPIRIDE 2 MG TABLET PO SCH ×2 (07:59→20:33)
[2020-12-04] MEDS: LABETALOL HCL 200 MG TABLET PO SCH ×3 (07:59→20:31)
[2020-12-04 08:00] VITALS: BP 114/62
[2020-12-04] MEDS: POLYETHYLENE GLYCOL 3350 17 GM POWD.PACK PO SCH (08:00)
[2020-12-04] MEDS: DEXAMETHASONE 4 MG TAB PO SCH (08:00)
[2020-12-04] MEDS: FLUOXETINE HCL 20 MG CAPSULE PO SCH (08:01)
[2020-12-04] MEDS: FAMOTIDINE 20MG TAB PO SCH ×2 (08:01→20:32)
[2020-12-04] MEDS: DOCUSATE SODIUM 100 MG CAP PO SCH ×2 (08:03→20:32)
[2020-12-04] MEDS: AMLODIPINE 5 MG TAB PO SCH ×2 (08:07→20:32)
[2020-12-04] MEDS: HYDROCHLOROTHIAZIDE 25 MG TABLET PO SCH (09:00)
[2020-12-04] MEDS: ENOXAPARIN SODIUM 40 MG/0.4 ML SYRINGE SQ SCH ×2 (09:16→20:33)
[2020-12-04 12:00] VITALS: BP 111/73
[2020-12-04] MEDS: LISINOPRIL 10 MG TABLET PO SCH ×2 (12:49→20:32)
[2020-12-04 15:30] VITALS: BP 122/86
[2020-12-04] MEDS ORDERED: INSULIN HUMULIN R 100 UNIT/ML 3ML SQ SCH (17:00)
[2020-12-04 20:08] VITALS: BP 117/76
[2020-12-04] MEDS: ZOLPIDEM TARTRATE 5 MG TAB PO PRN (20:31)
[2020-12-05 00:08] VITALS: BP 122/74
[2020-12-05 04:08] VITALS: BP 110/60
[2020-12-05 05:38] LABS: BASOPHILS % (AUTO) 0.1 % (0.0-5.0); EOSINOPHILS % (AUTO) 2.6 % (0.0-8.0); HEMATOCRIT 34.9 % (36-48); LYMPHOCYTES % (AUTO) 18.6 % (21.0-51.0); MEAN CORPUSCULAR HEMOGLOBIN 30.4 pg (27.0-33.0); MEAN CORPUSCULAR HGB CONC 33.2 g/dL (32.0-36.0); MEAN CORPUSCULAR VOLUME 91.6 fL (79-99); MONOCYTES % (AUTO) 9.3 % (3.0-13.0); NEUTROPHILS % (AUTO) 66.5 % (40.0-77.0); PLATELET COUNT (AUTO) 167 K/uL (130-400); RED BLOOD CELL COUNT(AUTO) 3.81 MIL/uL (4.00-5.50); RED CELL DISTRIBUTION WIDTH 13.5 % (11.0-15.5); WHITE BLOOD COUNT (AUTO) 8.3 K/uL (4.8-10.8)
[2020-12-05 06:09] LABS: CREATININE 0.9 mg/dL (0.5-1.5); POTASSIUM 4.1 mmol/L (3.5-5.1)
[2020-12-05] MEDS: INSULIN HUMULIN R 100 UNIT/ML 3ML SQ SCH ×5 (06:45→16:31)
[2020-12-05 08:00] VITALS: BP 110/60
[2020-12-05] MEDS: INSULIN GLARGINE 100 UNITS/ML 10 ML VIAL SQ SCH (08:00)
[2020-12-05] MEDS: BUSPIRONE HCL 5 MG TABLET PO SCH ×2 (08:49→13:47)
[2020-12-05] MEDS: DOCUSATE SODIUM 100 MG CAP PO SCH (08:49)
[2020-12-05] MEDS: AMLODIPINE 5 MG TAB PO SCH (08:50)
[2020-12-05] MEDS: FLUOXETINE HCL 20 MG CAPSULE PO SCH (08:50)
[2020-12-05] MEDS: HYDROCHLOROTHIAZIDE 25 MG TABLET PO SCH (08:50)
[2020-12-05] MEDS: GLIMEPIRIDE 2 MG TABLET PO SCH (08:50)
[2020-12-05] MEDS: ENOXAPARIN SODIUM 40 MG/0.4 ML SYRINGE SQ SCH (08:51)
[2020-12-05] MEDS: FAMOTIDINE 20MG TAB PO SCH (08:55)
[2020-12-05] MEDS: LABETALOL HCL 200 MG TABLET PO SCH (08:58)
[2020-12-05] MEDS ORDERED: DEXAMETHASONE 4 MG TAB PO SCH (09:00)
[2020-12-05] MEDS: POLYETHYLENE GLYCOL 3350 17 GM POWD.PACK PO SCH (09:02)
[2020-12-05] MEDS: LISINOPRIL 10 MG TABLET PO SCH (09:03)
[2020-12-05 11:19] VITALS: BP 98/56
[2020-12-05 15:49] VITALS: BP 130/58
[2020-12-05] MEDS ORDERED: APIX2.5T PO (16:23)
[2020-12-05] MEDS ORDERED: PANT40TA55 PO (16:23)
[2020-12-05] MEDS ORDERED: INSULIN HUMULIN R 100 UNIT/ML 3ML SQ SCH (17:00)
[2020-12-05] MEDS ORDERED: INSULIN GLARGINE 100 UNITS/ML 10 ML VIAL SQ SCH (21:00)
== END 2020-12-05 18:53 | disposition home or self-care (01) | DRG 871 ==
LOC: EDH 10:39 → EDHIP 10:40 → 2BH 11-10 01:16 → 2AH 11-16 16:50 → 4BH 12-02 02:00
PROVIDERS: ADMIT Internal Medicine; ATTEND Internal Medicine
PROC: XW033E5 Introduction of Remdesivir Anti-infective into Peripheral Vein, Percutaneous Approach, New Technology Group 5 (ICD-10-PCS; principal; 2020-11-09)
PROC: XW0DXM6 Introduction of Baricitinib into Mouth and Pharynx, External Approach, New Technology Group 6 (ICD-10-PCS; 2020-11-11)
PROC: 5A0935A Assistance with Respiratory Ventilation, Less than 24 Consecutive Hours, High Flow/Velocity Cannula (ICD-10-PCS; 2020-11-15)
PROC: 5A0935A Assistance with Respiratory Ventilation, Less than 24 Consecutive Hours, High Flow/Velocity Cannula (ICD-10-PCS; 2020-11-16)
PROC: 5A0935A Assistance with Respiratory Ventilation, Less than 24 Consecutive Hours, High Flow/Velocity Cannula (ICD-10-PCS; 2020-11-17)
PROC: 5A0935A Assistance with Respiratory Ventilation, Less than 24 Consecutive Hours, High Flow/Velocity Cannula (ICD-10-PCS; 2020-11-18)
PROC: 5A0935A Assistance with Respiratory Ventilation, Less than 24 Consecutive Hours, High Flow/Velocity Cannula (ICD-10-PCS; 2020-11-19)
PROC: 5A0935A Assistance with Respiratory Ventilation, Less than 24 Consecutive Hours, High Flow/Velocity Cannula (ICD-10-PCS; 2020-11-21)
PROC: 5A0935A Assistance with Respiratory Ventilation, Less than 24 Consecutive Hours, High Flow/Velocity Cannula (ICD-10-PCS; 2020-11-22)
PROC: 5A0935A Assistance with Respiratory Ventilation, Less than 24 Consecutive Hours, High Flow/Velocity Cannula (ICD-10-PCS; 2020-11-23)
PROC: 5A0935A Assistance with Respiratory Ventilation, Less than 24 Consecutive Hours, High Flow/Velocity Cannula (ICD-10-PCS; 2020-11-27)
PROC: 5A0935A Assistance with Respiratory Ventilation, Less than 24 Consecutive Hours, High Flow/Velocity Cannula (ICD-10-PCS; 2020-11-28)
DX: A41.89 Other specified sepsis (principal); U07.1 COVID-19; J12.82 Pneumonia due to coronavirus disease 2019; J80 Acute respiratory distress syndrome; J10.08 Influenza due to other identified influenza virus with other specified pneumonia; N17.9 Acute kidney failure, unspecified; E87.1 Hypo-osmolality and hyponatremia; Z68.41 Body mass index [BMI] 40.0-44.9, adult; D68.69 Other thrombophilia; E87.2 Acidosis; E11.65 Type 2 diabetes mellitus with hyperglycemia; E66.01 Morbid (severe) obesity due to excess calories; E87.6 Hypokalemia; E78.5 Hyperlipidemia, unspecified; E87.8 Other disorders of electrolyte and fluid balance, not elsewhere classified; E88.09 Other disorders of plasma-protein metabolism, not elsewhere classified; F41.1 Generalized anxiety disorder; I10 Essential (primary) hypertension; K59.00 Constipation, unspecified; Z68.38 Body mass index [BMI] 38.0-38.9, adult; T38.0X5A Adverse effect of glucocorticoids and synthetic analogues, initial encounter; T73.0XXA Starvation, initial encounter; Z79.4 Long term (current) use of insulin; Z98.891 History of uterine scar from previous surgery; Y92.89 Other specified places as the place of occurrence of the external cause
CPT/HCPCS: 36415; 36600; 71045; 80048; 80053; 81001; 81025; 82010; 82550; 82728; 82803; 82948; 83036; 83605; 83615; 83735; 83880; 84100; 84145; 84484; 85025; 85027; 85378; 86140; 87040; 87088; 87426; 87804; 93005; 93970; G0378; J0696; J1100; J1650; J1815; J2920; J7050; J8540